=== PATIENT | female | born 1980 | race Caucasian/White ===

== ENCOUNTER 2019-01-08 14:13 | Emergency (ER) | payer BC, OTHER ==
[~2019-01-08] VITALS: Ht 165.1 cm; Wt 95.2 kg
[~2019-01-08 14:13] MED LIST: MECL-77 PO; ONDA8TAB14 PO
[2019-01-08 14:22] VITALS: Ht 165.1 cm; Wt 95.2 kg
[2019-01-08] MEDS ORDERED: IOHEXOL 100 ML ONE (17:03)
[2019-01-08] MEDS ORDERED: SOD CHLORIDE 0.9% 100 ML ONE (17:03)
[2019-01-08 21:26] VITALS: BP 115/79; PULSE 70; RESP 16
== END 2019-01-08 21:28 | disposition home or self-care (01) ==
LOC: E/R 14:13
DX: H49.22 Sixth [abducent] nerve palsy, left eye (principal); R53.1 Weakness; R40.2142 Coma scale, eyes open, spontaneous, at arrival to emergency department; R40.2252 Coma scale, best verbal response, oriented, at arrival to emergency department; R40.2362 Coma scale, best motor response, obeys commands, at arrival to emergency department
CPT/HCPCS: 36415; 70450; 70496; 70498; 70551; 71045; 80048; 80061; 80307; 81001; 82962; 83036; 84484; 84703; 85025; 85610; 85730; 93005; 99285; Q9967